=== PATIENT | female | born 1995 | race Caucasian/White ===

== ENCOUNTER 2017-07-02 13:00 | Emergency (ER) | payer OTHER ==
[2017-07-02 13:06] VITALS: RESP 18
[2017-07-02] MEDS ORDERED: NS 500 ML IV ONE (13:41)
[2017-07-02 14:16] LABS: PLATELET COUNT 221 10^3/uL (150-400)
--- NOTE | 2017-07-02 14:26 | EDPHY ---
H & P Time Seen by Provider: 07/02/17 13:40 HPI/ROS: HPI Epigastric abdominal pain. 22-year-old female by private vehicle. She reports that she has had intermittent epigastric abdominal discomfort since Thursday. She reports she has had some associated nausea. She self induce vomiting a few days ago by drinking salt water thinking it might make her feel better. She otherwise had no vomiting and has been eating normally. She is currently on nitrofurantoin which was prescribed you are on Thursday for a urinary tract infection. She has no significant past medical history. No abdominal surgical history. No other complaints. ROS: Constitutional: No fever, no chills. No weakness. Respiratory: No cough. No shortness of breath. Cardiac: No chest pain, no palpitations. Gastrointestinal: As above, no diarrhea. Genitourinary: No hematuria. No dysuria or increased frequency with urination. Musculoskeletal: No back pain. No neck pain. No myalgias or arthralgias. Skin: No rashes. Neurological: No headache. No focal weakness or altered sensation. Past medical history: As above. Otherwise no past medical history. Social history: Nonsmoker. No alcohol. Here by herself. Physical Exam: General Appearance: Alert, no distress. This patient is responding to questions appropriately and in full sentences. This patient appears well- hydrated and well-nourished. Eyes: Pupils equal and round no pallor or injection. No lid edema, erythema or injection. Respiratory: There are no retractions, lungs are clear to auscultation with good air movement bilaterally. Cardiovascular: Regular rate and rhythm. No murmur. Gastrointestinal: Abdomen is soft and nontender, no masses, bowel sounds normal. No focal tenderness at McBurney's point. No Garcia sign. Neurological: Motor sensory function is grossly intact. Cranial nerves are normal. Gait is normal. Skin: Warm and dry, no rashes. Musculoskeletal: Neck is supple and nontender. Extremities are symmetrical. All joints range without pain or impingement. Psychiatric: No agitation. No depression. Database: EKG: Imaging: Right upper quadrant ultrasound: No gallstones seen. There is a 10 mm mass, adhered to the wall of the gallbladder near the fundus. Possibly a fibroma. Otherwise this study is normal. Results were discussed with staff radiologist Dr. Ricardo Diamond. Procedures: Emergency department course: IV was placed. Appropriate blood work sent. Vital signs reviewed and are normal. She consents to ultrasound of her gallbladder. Abdomen benign on initial exam. 2:50 p.m., patient re-evaluated. Resting comfortably at this time. Repeat abdominal exam she is soft, nontender nondistended. Results of her ultrasound and blood work discussed. Plan will be to have her follow up with Dr. Anatoly Iraheta or 1 of his partners with the surgical service for re-evaluation and likely elective cholecystectomy. She endorses this plan. She feels comfortable going home and I feel she is safe for discharge. Follow-up and return to emergency department precautions reviewed with her. All of her questions were answered. She was discharged in good condition. Differential Diagnosis: The differential diagnosis on this patient includes but is not limited to gastritis. Cholecystitis, biliary colic, pancreatitis, ulcerative gastritis unlikely. This represents a partial list of diagnoses considered. These considerations are based on history, physical exam, past history, reassessment and diagnostic testing. Smoking Status: Never smoked Constitutional: Initial Vital Signs Temperature (C) 36.7 C 07/02/17 13:03 Heart Rate 94 07/02/17 13:03 Respiratory Rate 18 07/02/17 13:03 Blood Pressure 118/76 07/02/17 13:03 O2 Sat (%) 97 07/02/17 13:03 O2 Delivery Mode Room Air Allergies/Adverse Reactions: No Known Allergies Allergy (Unverified 07/02/17 13:02) Home Medications: Medication Instructions Recorded Nitrofurantoin Macrocrystal 25 mg PO 07/02/17 [Nitrofurantoin] Ondansetron Odt [Zofran Odt] 4 mg PO Q4PRN PRN #7 tab 07/02/17 Sertraline HCl [Zoloft 50mg (*)] 50 mg PO DAILY 07/02/17 07/02/17 Medical Decision Making - Data Points Laboratory Results: Laboratory Results 07/02/17 14:10 07/02/17 14:10 Medications Given: Discontinued Medications Sodium Chloride (Ns) 500 mls @ 0 mls/hr IV EDNOW ONE; Wide Open PRN Reason: Protocol Stop: 07/02/17 13:42 Last Admin: 07/02/17 14:09 Dose: 500 mls Departure - Departure Disposition: Home, Routine, Self-Care Clinical Impression: Upper abdominal pain, Gastritis Condition: Good Instructions: Gastritis (ED), Abdominal Pain (ED) Additional Instructions: Read and follow provided instructions. Avoid fatty and spicy foods. Follow-up with Dr. Anatoly Iraheta or 1 of his partners for re-evaluation of your gallbladder. I am concerned about the small mass that was found inside the gallbladder. Dr. Iraheta will have access to all of our test results and imaging results that were done today in the emergency department. Avoid ibuprofen and other NSAIDs like medications. Return to the emergency department for worsening pain, vomiting, bloody or dark stool or other serious concerns. Referrals: Alfredo Iraheta MD [Medical Doctor] - As per Instructions Stand Alone Forms: School Excuse Prescriptions: Ondansetron Odt [Zofran Odt] 4 mg PO Q4PRN PRN #7 tab PRN Reason: Nausea/Vomiting, Use 1st
[2017-07-02 15:23] VITALS: BP 112/66; PULSE 69; TEMP 98.4; O2SAT 99
== END 2017-07-02 15:22 | disposition home or self-care (01) ==
DX: K29.70 Gastritis, unspecified, without bleeding (principal); E86.9 Volume depletion, unspecified

== ENCOUNTER 2017-07-10 09:46 | Day surgery (SDC) | payer OTHER ==
--- NOTE | 2017-07-10 08:13 | PDHPUP ---
History & Physical Update H&P update statement: This history and physical update is based on an assessment of the patient which was completed after admission or registration (within 24 hours), but prior to the surgery/procedure.
[~2017-07-10 09:46] MED LIST: cefOXitin SODIUM 2 GM in STERILE WATER INJ 21 ML IV ONE
[2017-07-10] MEDS ORDERED: BUPIVACAINE 0.5% 30 ML SDV ONE (09:56)
[2017-07-10] MEDS ORDERED: HEPARIN 1000 UNIT/1 ML MDV ONE (09:56)
[2017-07-10] MEDS ORDERED: ceFAZolin 1 GM/5 ML SYR ONE (09:57)
[2017-07-10] MEDS ORDERED: LR 1,000 ML IV ONE (10:06)
[2017-07-10 10:21] VITALS: PULSE 82
[2017-07-10] MEDS ORDERED: MIDAZOLAM 2 MG/2 ML VIAL IVP ONE (11:12)
--- NOTE | 2017-07-10 11:12 | PDANEPAE ---
ANE History of Present Illness 22 yo for darryn stiles ANE Past Medical History - Cardiovascular History Hx Hypertension: No Hx Arrhythmias: No Hx Chest Pain: No Hx Coronary Artery / Peripheral Vascular Disease: No Hx CHF / Valvular Disease: No Hx Palpitations: No - Pulmonary History Hx COPD: No Hx Asthma/Reactive Airway Disease: No Hx Recent Upper Respiratory Infection: No Hx Oxygen in Use at Home: No Hx Sleep Apnea: No Sleep Apnea Screening Result - Last Documented: Negative Pulmonary History Comment: uses E- CIGARETTES - Neurologic History Hx Cerebrovascular Accident: No Hx Seizures: No Hx Dementia: No - Endocrine History Hx Diabetes: No - Renal History Hx Renal Disorders: No - Liver History Hx Hepatic Disorders: No - Neurological & Psychiatric Hx Hx Neurological and Psychiatric Disorders: Yes Neurological / Psychiatric History Comment: DEPPRESION,ANXIETY - Cancer History Hx Cancer: No - Congenital Disorder History Hx Congenital Disorders: No - GI History Hx Gastrointestinal Disorders: No - Other Health History Other Health History: NONE - Chronic Pain History Chronic Pain: No - Surgical History Prior Surgeries: wisdom teeth removed 06/23/17 ANE Review of Systems Review of Systems: - Exercise capacity METS (RN): 5 METS ANE Patient History - Allergies Allergies/Adverse Reactions: No Known Allergies Allergy (Verified 07/10/17 10:07) - Home Medications Home medications: home medication list seen and reviewed Home Medications: Sertraline HCl [Zoloft 50mg (*)] 07/02/17 [Last Taken 07/10/17] Loestrin 21 1-20 Tablet 07/08/17 [Last Taken 07/10/17] - NPO status NPO Status: no food or drink >8 hours NPO Since - Liquids (Date): 07/10/17 NPO Since - Liquids (Time): 00:00 NPO Since - Solids (Date): 07/09/17 NPO Since - Solids (Time): 23:30 - Anes Hx Anes Hx: no prior problems - Smoking Hx Smoking Status: Never smoked - Family Anes Hx Family Hx Anesthesia Complications: none ANE Labs/Vital Signs - Vital Signs Blood Pressure: 126/81 Heart Rate: 82 Respiratory Rate: 16 O2 Sat (%): 97 Height: 5 ft 4 in Weight: 56.699 kg ANE Physical Exam - Airway Neck exam: FROM Mallampati Score: Class 1 Mouth exam: normal dental/mouth exam - Pulmonary Pulmonary: no respiratory distress - Cardiovascular Cardiovascular: regular rate and rhythym - ASA Status ASA Status: II ANE Anesthesia Plan Anesthesia Plan: general endotracheal anesthesia
[2017-07-10] MEDS ORDERED: fentaNYL 100 MCG/2 ML INJ ONE ×4 (11:14→13:57)
[2017-07-10] MEDS ORDERED: PROPOFOL/EMULSION 500 MG/50 ML BOTTLE IV ONE (11:15)
[2017-07-10] MEDS ORDERED: KETOROLAC 30 MG/1 ML SDV ONE (12:09)
[2017-07-10] MEDS ORDERED: ROCURONIUM 50 MG/5 ML VIAL ONE (12:09)
[2017-07-10] MEDS ORDERED: SUGAMMADEX SODIUM 200 MG/2 ML VIAL IVP ONE (12:09)
[2017-07-10] MEDS ORDERED: ONDANSETRON 4 MG/2 ML VIAL ONE ×2 (12:09→12:48)
[2017-07-10] MEDS ORDERED: HYDROCODONE/APAP 5/325 TAB PO PRN (12:38)
[2017-07-10] MEDS ORDERED: NALOXONE HCL 0.4 MG/ML INJ IVP PRN (12:38)
[2017-07-10] MEDS ORDERED: HYDROmorphONE/DILAUDID 1 MG/ML INJ IVP PRN (12:38)
[2017-07-10] MEDS ORDERED: OXYCODONE/APAP 5/325 TAB PO PRN ×2 (12:38→12:42)
[2017-07-10] MEDS ORDERED: ONDANSETRON 4 MG/2 ML VIAL IVP PRN (12:38)
--- NOTE | 2017-07-10 12:38 | POSTOPPROG ---
Post Op Note Date of Operation: 07/10/17 Surgeon: Alfredo Iraheta Water Quality Assistant: ABDULKADIR Anesthesiologist: SONIDO Anesthesia: GET(General Endotracheal) Pre-op Diagnosis: GALLBLADDER MASS Post-op Diagnosis: ADENOMYOMA OF GALLBLADDER Indication: PAIN, NAUSEA Procedure: LAP CHOLEY Findings: 1 CM ADENOMYOMA, NO NODES Inf/Abcess present in the surg proc area at time of surgery?: No Depth: Organ Space EBL: Minimal Complications: 0 Specimen(s): GALLBLADDER
[2017-07-10] MEDS: fentaNYL 100 MCG/2 ML INJ IVP PRN ×4 (12:46→15:03)
[2017-07-10] MEDS ORDERED: HYDROmorphONE/DILAUDID 1 MG/ML INJ ONE (13:06)
--- NOTE | 2017-07-10 13:45 | POSTANESTH ---
Post Anesthetic Evaluation Cardiovascular Status: Normal, Stable Respiratory Status: Normal, Stable Level of Consciousness/Mental Status: Can Participate in Eval Pain Control: Adequate, Prn Tx Ordered Nausea/Vomiting Control: Adequate, Prn Tx Ordered Complications Possibly Related to Anesthesia: None Noted
[2017-07-10 17:19] VITALS: TEMP 97.3
[2017-07-10 17:21] VITALS: BP 143/86; RESP 14; O2SAT 95
[2017-07-10] MEDS ORDERED: KETOROLAC 15 MG/1 ML SDV IVP SCH (18:00)
--- NOTE | 2017-07-12 15:10 | GOP ---
[f rep st] OPERATIVE REPORT DATE OF OPERATION: 07/10/2017 SURGEON: Alfredo Iraheta MD MANUFACTURING ENGINEERING PROFESSOR: Therese Kunz NP. ANESTHESIOLOGIST: . PREOPERATIVE DIAGNOSIS: Right upper quadrant pain and gallbladder mass. POSTOPERATIVE DIAGNOSIS: Right upper quadrant pain and gallbladder mass, with adenomyoma of the gall bladder wall procedures. PROCEDURE PERFORMED: Laparoscopic cholecystectomy. FINDINGS: Patient was found to have a slightly over 1 cm mass in the wall of the gallbladder, which appeared to be benign on frozen section. The gallbladder itself was not inflamed and there were no s ignificant stones. Ducts were small. DESCRIPTION OF PROCEDURE: Patient taken to the operating room, where she received satisfactory gener al endotracheal anesthesia. She was placed in the supine position, prepped and draped in the usual s terile fashion. A periumbilical incision was made. A Veress needle was inserted. Pneumoperitoneum was established. Trocar was introduced. Laparoscope introduced. Good visualization was obtained. 3 other trocars were placed in the upper abdomen under direct vision. The gallbladder was elevated u p. The cystic triangle was carefully dissected free. The cystic duct was exposed, as was the cystic artery. A good clear view was obtained. Both cystic artery and cystic duct were multiply hemoclipp ed and divided. Peritoneum of the gallbladder was then incised, and the gallbladder was dissected fr ee from the bed of the hepatic fossa. The above-noted mass was seen. It was on the wall of the gall bladder adjacent to the liver, but there was no extension or connection into the liver. The gallblad maritza was dissected free and removed, extracting it through the upper midline port site. The area was examined. There were no significant nodes in the area, and no evidence of any liver metastases. The wound was irrigated. Hemostasis was assured. Trocars removed under direct vision. Trocar sites we re closed with 0 Vicryl for the fascia, 4-0 Vicryl subcuticular stitch for the skin. All layers infi ltrated with 0.5% Marcaine. Blood loss was negligible. She was taken to recovery room in good condit ion. /[id number]/MODL
== END 2017-07-10 17:15 | disposition home or self-care (01) ==
LOC: FSGY 09:46
PROVIDERS: ATTEND Surgery
PROC: 0FT44ZZ Resection of Gallbladder, Percutaneous Endoscopic Approach (ICD-10-PCS; principal; 2017-07-10 11:00)
DX: K82.8 Other specified diseases of gallbladder (principal); K81.1 Chronic cholecystitis
CPT/HCPCS: J0694; J1170; J1642; J1885; J2250; J2405; J2704; J3010

== ENCOUNTER 2017-09-05 00:07 | Emergency (ER) | payer OTHER ==
[2017-09-05 00:17] VITALS: RESP 16
[2017-09-05] MEDS ORDERED: NS 1,000 ML IV ONE (00:24)
[2017-09-05] MEDS ORDERED: ONDANSETRON 4 MG/2 ML VIAL ONE (00:26)
[2017-09-05] MEDS ORDERED: ONDANSETRON 4 MG/2 ML VIAL IVP ONE (00:26)
[2017-09-05] MEDS ORDERED: LIDOCAINE 2% VISCOUS 15 ML UDCUP PO ONE (00:30)
[2017-09-05] MEDS ORDERED: FAMOTIDINE 20 MG/2 ML SDV IVP ONE (00:30)
[2017-09-05] MEDS ORDERED: MAG HYDROX/AL HYDROX/SIMETH 30 ML UDCUP PO ONE (00:30)
[2017-09-05] MEDS ORDERED: HYOSCYAMINE SULFATE 0.125 MG TAB PO ONE (00:30)
--- NOTE | 2017-09-05 00:30 | EDPHY ---
General - History Smoking Status: Never smoked Time Seen by Provider: 09/05/17 00:21 Narrative: CHIEF COMPLAINT: Nausea, vomiting, diarrhea HISTORY OF PRESENT ILLNESS: Patient complains of nausea, vomiting, diarrhea and upper abdominal pain. This has been present since her surgery 2 months ago. The surgery was a laparoscopic cholecystectomy. She says the diarrhea is unchanged. This is mostly postprandial. Minimal to no diarrhea when she is NPO. She describes no fever or chills. No lower abdominal pain. No pelvic pain. No vaginal bleeding or discharge. No flank pain or urinary complaints. No chest pain or shortness of breath. She has also been vomiting over the past 2 weeks intermittently. She does tolerate clears at times. Sometimes difficulty with solids. No changes in her medications. No recent antibiotics. REVIEW OF SYSTEMS: Ten systems reviewed and are negative unless otherwise noted in the HPI PCP: Dr. Santos in [place] SPECIALISTS: Dr. Iraheta, general surgery PAST MEDICAL HISTORY: Depression anxiety PAST SURGICAL HISTORY: Laparoscopic cholecystectomy on August 12, 2017 SOCIAL HISTORY: Nonsmoker. Minimal alcohol intake. Daily marijuana user FAMILY HISTORY: Noncontributory EXAMINATION General Appearance: Alert, no distress Head: normocephalic, atraumatic Eyes: Pupils equal and round, no conjunctival pallor or injection ENT, Mouth: Mucous membranes moist. Uvula midline. Neck: Normal inspection, supple, non-tender Respiratory: Lungs are clear to auscultation. No wheezing, rhonchi or crackles Cardiovascular: Regular rate and rhythm. No murmur Gastrointestinal: Abdomen is soft and nondistended. No tympany rigidity. No CVA tenderness. Bowel sounds are present all 4 quadrants symmetrically. Minimal epigastric tenderness. Back: non-tender, no bony abnormalities Neurological: A&O, nonfocal, normal gait Skin: Warm and dry, no rash. Multiple tattoos Extremities: Nontender, no pedal edema Psychiatric: Mood and affect normal DIFFERENTIAL DIAGNOSES: Including but not limited to gastritis, enteritis, gastroenteritis, colitis, THC gastritis MDM: 12:29 a.m. Nausea vomiting diarrhea that is nearly chronic in nature. She is mildly tachycardic and may be dehydrated, thus I have ordered IV placement IV fluid. Her abdominal exam is nonacute and without peritonitis. I have not ordered any imaging at this time but I have ordered laboratory studies. I have also ordered nausea medication, H2 emily and GI cocktail. She is in no acute distress resting comfortably in no need of narcotics at this time. 12:50 a.m. At this time I have discussed the case with Dr. Bran. He will assume care the patient. Her laboratory studies are still pending. With mild tachycardia, vital signs are otherwise well within normal limits. She is in no acute distress and receiving IV fluid resuscitation, IV Pepcid, GI cocktail and IV antiemetic. Please see the note of Dr. Bran for all other aspects of care and disposition. SUPERVISION: Patient was evaluated and examined in conjunction with my secondary supervising physician as documented. We have both examined the patient. (Gerald Harvey) Medical Decision MakinAM: Patient re-evaluated this time resting comfortably. Infection was sleeping. She has had no further vomiting here. I did reexamine her abdomen is soft nontender. She is ready to go home. I have answered all her questions. She does understand return precautions she understands return emergency room develops worsening abdominal pain fever vomiting. Most likely cause of nausea vomiting is GI illness. Return precautions discussed she understands. She is comfortable going home. (Phil Bran) - Objective Vital Signs: Initial Vital Signs Temperature (C) 36.9 C 09/05/17 00:12 Heart Rate 114 H 09/05/17 00:12 Respiratory Rate 16 09/05/17 00:12 Blood Pressure 123/72 H 09/05/17 00:12 O2 Sat (%) 95 09/05/17 00:12 O2 Delivery Mode Room Air Allergies/Adverse Reactions: No Known Allergies Allergy (Verified 07/10/17 10:07) Home Medications: Medication Instructions Recorded Sertraline HCl [Zoloft 50mg (*)] 07/02/17 Loestrin 21 1-20 Tablet 07/08/17 Ondansetron HCl [Zofran] 4 mg PO Q4-6PRN PRN #10 tablet 09/05/17 Laboratory Results: Laboratory Results 09/05/17 00:34 09/05/17 00:34 09/05/17 09/05/17 09/05/17 00:34 00:34 00:34 WBC 12.13 10^3/uL H 10^3/uL (3.80-9.50) RBC 4.78 10^6/uL 10^6/uL (4.18-5.33) Hgb 14.4 g/dL g/dL (12.6-16.3) Hct 42.3 % % (38.0-47.0) MCV 88.5 fL fL (81.5-99.8) MCH 30.1 pg pg (27.9-34.1) MCHC 34.0 g/dL g/dL (32.4-36.7) RDW 12.7 % % (11.5-15.2) Plt Count 336 10^3/uL 10^3/uL (150-400) MPV 9.5 fL fL (8.7-11.7) Neut % (Auto) 65.8 % % (39.3-74.2) Lymph % (Auto) 27.3 % % (15.0-45.0) [place] % (Auto) 4.2 % L % (4.5-13.0) Eos % (Auto) 1.7 % % (0.6-7.6) Baso % (Auto) 0.7 % % (0.3-1.7) Nucleat RBC Rel Count 0.0 % % (0.0-0.2) Absolute Neuts (auto) 7.98 10^3/uL H 10^3/uL (1.70-6.50) Absolute Lymphs (auto) 3.31 10^3/uL H 10^3/uL (1.00-3.00) Absolute Monos (auto) 0.51 10^3/uL 10^3/uL (0.30-0.80) Absolute Eos (auto) 0.21 10^3/uL 10^3/uL (0.03-0.40) Absolute Basos (auto) 0.08 10^3/uL 10^3/uL (0.02-0.10) Absolute Nucleated RBC 0.00 10^3/uL 10^3/uL (0-0.01) Immature Gran % 0.3 % % (0.0-1.1) Immature Gran # 0.04 10^3/uL 10^3/uL (0.00-0.10) Sodium 149 mEq/L H mEq/L (135-145) Potassium 4.3 mEq/L mEq/L (3.5-5.2) Chloride 108 mEq/L mEq/L (97-110) Carbon Dioxide 23 mEq/l mEq/l (22-31) Anion Gap 18 mEq/L H mEq/L (8-16) BUN 9 mg/dL mg/dL (7-23) Creatinine 0.6 mg/dL mg/dL (0.6-1.0) Estimated GFR > 60 Glucose 83 mg/dL mg/dL (70-100) Calcium 9.6 mg/dL mg/dL (8.5-10.4) Total Bilirubin 0.4 mg/dL mg/dL (0.1-1.4) Conjugated Bilirubin 0.3 mg/dL mg/dL (0.0-0.5) Unconjugated Bilirubin 0.1 mg/dL mg/dL (0.0-1.1) AST 27 IU/L IU/L (14-46) ALT 29 IU/L IU/L (9-52) Alkaline Phosphatase 81 IU/L IU/L (38-126) Total Protein 8.8 g/dL H g/dL (6.3-8.2) Albumin 5.0 g/dL g/dL (3.5-5.0) Lipase 136 IU/L IU/L (23-300) Beta HCG, Qual NEGATIVE Medications Given: Discontinued Medications Al Hydroxide/Mg Hydroxide (Maalox Susp) 30 ml PO ONCE ONE Stop: 09/05/17 00:31 Last Admin: 09/05/17 00:59 Dose: 30 ml Famotidine (Pepcid) 20 mg IVP EDNOW ONE Stop: 09/05/17 00:31 Last Admin: 09/05/17 00:59 Dose: 20 mg Hyoscyamine Sulfate (Levsin, Hyomax-Sl) 0.25 mg PO ONCE ONE Stop: 09/05/17 00:31 Last Admin: 09/05/17 00:59 Dose: 0.25 mg Sodium Chloride (Ns) 1,000 mls @ 0 mls/hr IV ONCE ONE; Wide Open PRN Reason: Protocol Stop: 09/05/17 00:25 Last Admin: 09/05/17 00:36 Dose: 1,000 mls Lidocaine (Lidocaine 2% Viscous) 15 ml PO ONCE ONE Stop: 09/05/17 00:31 Last Admin: 09/05/17 00:59 Dose: 15 ml Ondansetron HCl (Zofran) 4 mg IVP EDNOW ONE Stop: 09/05/17 00:27 Last Admin: 09/05/17 00:37 Dose: 4 mg Departure - Departure Disposition: Home, Routine, Self-Care Clinical Impression: Nausea & vomiting Qualifiers: Vomiting type: unspecified Vomiting Intractability: non-intractable Qualified Code(s): R11.2 - Nausea with vomiting, unspecified Diarrhea Qualifiers: Diarrhea type: unspecified type Qualified Code(s): R19.7 - Diarrhea, unspecified Condition: Good Instructions: Gastritis (ED), Acute Nausea and Vomiting (ED) Referrals: Alfredo Iraheta MD [Medical Doctor] - As per Instructions Glenn Porter MD [Medical Doctor] - As per Instructions Prescriptions: Ondansetron HCl [Zofran] 4 mg PO Q4-6PRN PRN #10 tablet PRN Reason: Nausea/Vomiting, Use 1st
[2017-09-05 01:01] LABS: PLATELET COUNT 336 10^3/uL (150-400)
[2017-09-05 02:23] VITALS: BP 109/64; PULSE 69; TEMP 97.9; O2SAT 95
== END 2017-09-05 02:23 | disposition home or self-care (01) ==
DX: R11.2 Nausea with vomiting, unspecified (principal); R19.7 Diarrhea, unspecified; E86.9 Volume depletion, unspecified
CPT/HCPCS: 96374; J2405